=== PATIENT | male | born 1970 | race Two or more races ===

== ENCOUNTER 2019-04-21 07:33 | Emergency (ER) | payer MEDICARE, MEDICAID ==
[2019-04-21 08:27] LABS: BLOOD UREA NITROGEN,BUN 11 mg/dL (7.0-18.0); CARBON DIOXIDE,CO2 25.2 mmol/L (21.0-32.0); CHLORIDE,CL 100 mmol/L (98-107); GLUCOSE RANDOM 133 mg/dL (74-106); POTASSIUM,K 3.6 mmol/L (3.5-5.1); SODIUM,NA 135 mmol/L (136-148)
--- NOTE | 2019-04-21 08:51 | US ---
INDICATION: Pain and swelling both lower extremities; rule out DVT; patient went off meds 2 days ago; history of DVT. COMPARISON: None. TECHNIQUE: Duplex ultrasound evaluation venous system both lower extremities; color Doppler duplex assessment. FINDINGS: The right leg: Common femoral vein is unremarkable. wall thickening involving the femoral vein the without any evidence of intraluminal filling defects. It is possible this is secondary to chronic DVT. Rest of the deep venous system in the right lower extremity is compressible with augmentation of flow post compression stalk phasic flow identified. Left leg: Incomplete compressibility of the left femoral vein again secondary to wall thickening and possibly chronic DVT. Left common femoral vein is unremarkable. Rest of the deep venous system in the left lower extremity is compressible with augmentation of flow post compression .phasic flow identified. Lymphadenopathy both inguinal area; rule out reactive lymphadenopathy. IMPRESSION: 1. Wall thickening femoral veins bilateral most likely secondary to chronic DVT. 2. Edema both legs. 3. Lymphadenopathy both inguinal areas; Rule out reactive lymphadenopathy. Dictated by Jens Ascencio MD @ Apr 21 2019 8:45AM Signed by Dr. Jens Ascencio @ Apr 21 2019 8:49AM
--- NOTE | 2019-04-21 09:28 | EDM.PDOC ---
ED HPI GENERAL MEDICAL PROBLEM - General Chief Complaint: Lower Extremity Injury/Pain Stated Complaint: SWELLING IN BOTH LEGS Time Seen by Provider: 04/21/19 09:27 Source of Information: Reports: Patient - History of Present Illness INITIAL COMMENTS - FREE TEXT/NARRATIVE: HISTORY AND PHYSICAL: History of present illness: [Patient presents with history of DVT IVC alternator on [place] as he has been off his eloquence for a few days as he has ran out his primary care doctor is in [facility] he will be home again until approximately Thanksgiving that time he will be staying in [place] for the winter no fever nausea vomiting chills sweats no chest pain shortness breath headache dizziness palpitation about a urine symptoms] Review of systems: As per history of present illness and below otherwise all systems reviewed and negative. Past medical history: As per history of present illness and as reviewed below otherwise noncontributory. Surgical history: As per history of present illness and as reviewed below otherwise noncontributory. Social history: No reported history of drug or alcohol abuse. Family history: As per history of present illness and as reviewed below otherwise noncontributory. Physical exam: HEENT: Atraumatic, normocephalic, pupils reactive, negative for conjunctival pallor or scleral icterus, mucous membranes moist, throat clear, neck supple, nontender, trachea midline. Lungs: Clear to auscultation, breath sounds equal bilaterally, chest nontender. Heart: S1S2, regular, negative for clicks, rubs, or JVD. Abdomen: Soft, nondistended, nontender. Negative for masses or hepatosplenomegaly. Negative for costovertebral tenderness. Pelvis: Stable nontender. Genitourinary: Deferred. Rectal: Deferred. Extremities: Atraumatic, negative for cords or calf pain. Neurovascular unremarkable. Mild swelling left greater than right pitting edema Neuro: Awake, alert, oriented. Cranial nerves II through XII unremarkable. Cerebellum unremarkable. Motor and sensory unremarkable throughout. Exam nonfocal. Diagnostics: [CBC CMP INR Venous Doppler bilateral ] Therapeutics: Continue Eliquis Rx provided Impression: [History of DVT currently out of medication ] Definitive disposition and diagnosis as appropriate pending reevaluation and review of above. Bilateral Leg Pain Score (Numeric/FACES): 8 - Related Data Allergies Allergy/AdvReac Type Severity Reaction Status Date / Time No Known Allergies Allergy Verified 04/21/19 08:07 Home Meds: Home Meds Apixaban [Eliquis] 5 mg PO DAILY 04/21/19 [History] Past Medical History HEENT History: Reports: None Cardiovascular History: Reports: None, Blood Clots/VTE/DVT Respiratory History: Reports: None Gastrointestinal History: Reports: None Genitourinary History: Reports: None Musculoskeletal History: Reports: None Neurological History: Reports: None Psychiatric History: Reports: None Endocrine/Metabolic History: Reports: None Hematologic History: Reports: None Immunologic History: Reports: None Oncologic (Cancer) History: Reports: None Dermatologic History: Reports: None - Infectious Disease History Infectious Disease History: Reports: None - Past Surgical History Head Surgeries/Procedures: Reports: None Cardiovascular Surgical History: Reports: Other (See Below) Other Cardiovascular Surgeries/Procedures: 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 Social & Family History - Family History Family Medical History: Noncontributory - Tobacco Use Smoking Status *Q: Current Every Day Smoker Years of Tobacco use: 2 Packs/Tins Daily: 0.2 Used Tobacco, but Quit: No Second Hand Smoke Exposure: No - Caffeine Use Caffeine Use: Reports: Coffee - Alcohol Use Days Per Week of Alcohol Use: 7 Number of Drinks Per Day: 1 Total Drinks Per Week: 7 - Recreational Drug Use Recreational Drug Use: Yes Drug Use in Last 12 Months: Yes Recreational Drug Type: Reports: Marijuana/Hashish Recreational Drug Use Frequency: Weekly Review of Systems - Review of Systems Review Of Systems: See Below ED EXAM, GENERAL - Physical Exam Exam: See Below Course - Vital Signs Last Recorded V/S: Last Vital Signs Temp 98.4 F 04/21/19 07:53 Pulse 85 04/21/19 07:53 Resp 16 04/21/19 07:53 BP 154/98 H 04/21/19 07:53 Pulse Ox 98 04/21/19 07:53 - Orders/Labs/Meds Labs: Laboratory Tests 04/21/19 04/21/19 04/21/19 Range/Units 07:57 07:57 07:57 WBC 5.33 (4.0-11.0) K/uL RBC 5.44 (4.50-5.90) M/uL Hgb 10.4 L (13.0-17.0) g/dL Hct 35.5 L (38.0-50.0) % MCV 65.3 L (80.0-98.0) fL MCH 19.1 L (27.0-32.0) pg MCHC 29.3 L (31.0-37.0) g/dL RDW Std Deviation 48.4 (28.0-62.0) fl RDW Coeff of Jeannette 21 H (11.0-15.0) % Plt Count 305 (150-400) K/uL MPV 9.90 (7.40-12.00) fL Neut % (Auto) 41.3 L (48.0-80.0) % Lymph % (Auto) 30.2 (16.0-40.0) % Blair % (Auto) 12.0 (0.0-15.0) % Eos % (Auto) 14.8 H (0.0-7.0) % Baso % (Auto) 1.7 H (0.0-1.5) % Neut # (Auto) 2.2 (1.4-5.7) K/uL Lymph # (Auto) 1.6 (0.6-2.4) K/uL Blair # (Auto) 0.6 (0.0-0.8) K/uL Eos # (Auto) 0.8 H (0.0-0.7) K/uL Baso # (Auto) 0.1 (0.0-0.1) K/uL Nucleated RBC % 0.0 /100WBC Nucleated RBCs # 0 K/uL INR 0.98 Sodium 135 L (136-148) mmol/L Potassium 3.6 (3.5-5.1) mmol/L Chloride 100 (98-107) mmol/L Carbon Dioxide 25.2 (21.0-32.0) mmol/L BUN 11 (7.0-18.0) mg/dL Creatinine 1.0 (0.8-1.3) mg/dL Est Cr Clr Drug Dosing 100.23 mL/min Estimated GFR (MDRD) > 60.0 ml/min Glucose 133 H (74-106) mg/dL Calcium 8.4 L (8.5-10.1) mg/dL Total Bilirubin 0.7 (0.2-1.0) mg/dL AST 39 H (15-37) IU/L ALT 43 (14-63) IU/L Alkaline Phosphatase 117 H (46-116) U/L Total Protein 8.9 H (6.4-8.2) g/dL Albumin 3.7 (3.4-5.0) g/dL Globulin 5.2 H (2.6-4.0) g/dL Albumin/Globulin Ratio 0.7 L (0.9-1.6) Departure - Departure Time of Disposition: 09:31 Disposition: Home, Self-Care 01 Condition: Good Clinical Impression: History of DVT (deep vein thrombosis) - Discharge Information Referrals: PCP,None [Primary Care Provider] - Forms: ED Department Discharge Additional Instructions: The following information is given to patients seen in the emergency department who are being discharged to home. This information is to outline your options for follow-up care. We provide all patients seen in our emergency department with a follow-up referral. The need for follow-up, as well as the timing and circumstances, are variable depending upon the specifics of your emergency department visit. If you don't have a primary care physician on staff, we will provide you with a referral. We always advise you to contact your personal physician following an emergency department visit to inform them of the circumstance of the visit and for follow-up with them and/or the need for any referrals to a consulting specialist. The emergency department will also refer you to a specialist when appropriate. This referral assures that you have the opportunity for follow-up care with a specialist. All of these measure are taken in an effort to provide you with optimal care, which includes your follow-up. Under all circumstances we always encourage you to contact your private physician who remains a resource for coordinating your care. When calling for follow-up care, please make the office aware that this follow-up is from your recent emergency room visit. If for any reason you are refused follow-up, please contact the [facility] emergency department at and asked to speak to the emergency department charge nurse.
== END 2019-04-21 09:47 | disposition home or self-care (01) ==
LOC: MW.ED 07:33
DX: Z86.718 Personal history of other venous thrombosis and embolism (principal); F17.210 Nicotine dependence, cigarettes, uncomplicated
CPT/HCPCS: 36415; 80053; 85025; 85610; 93970; 93970-26; 99283; 99284-25